=== PATIENT | female | born 1940 | race Caucasian/White ===

== ENCOUNTER → 2022-03-31 | Outpatient (CLI) | payer MEDICARE | LOC: KOH-I 03-24 08:30 | DX: S42.291K Other displaced fracture of upper end of right humerus, subsequent encounter for fracture with nonunion (principal); M19.012 Primary osteoarthritis, left shoulder | CPT/HCPCS: 73200 ==

== ENCOUNTER → 2022-04-08 | Outpatient (CLI) | payer MEDICARE ==
[~2022-04-08] MED LIST: ATENOLOL25 MG PO; MULTI-VITAMIN1 EACH PO; PRAVASTATIN SOD20 MG PO; VITAMIN D21250 MCG PO
[2022-04-08 11:07] LABS: HEMOGLOBIN 12.7 gm/dl (12.3-15.3); RED BLOOD COUNT 4.25 M/UL (4.00-5.10); WHITE BLOOD COUNT 7.5 K/UL (4.5-11.0)
== END ==
LOC: OPSV2 09:05 → EDSTATUS 10:00 → OPSV2 10:00
PROVIDERS: Orthopaedic Surgery
DX: Z01.818 Encounter for other preprocedural examination (principal); S42.202A Unspecified fracture of upper end of left humerus, initial encounter for closed fracture
CPT/HCPCS: 80048; 85025; 93005

== ENCOUNTER → 2022-04-21 | Outpatient (CLI) | payer MEDICARE ==
[~2022-04-21] MED LIST changes: +CELEBREX200 MG PO; +NEURONTIN300 MG PO; +ROXICODONE TAB 55 MG PO; +ROXICODONE5 MG PO; +ZOFRAN 4 MG TAB4 MG PO
== END ==
LOC: LAB 09:10
PROVIDERS: Orthopaedic Surgery
DX: Z01.812 Encounter for preprocedural laboratory examination (principal)
CPT/HCPCS: 36415; 80048; 86850; 86900; 86901

== ENCOUNTER 2022-04-22 07:09 | Observation (INO) | payer MEDICARE ==
[~2022-04-22] VITALS: Ht 160 cm; Wt 54.4 kg
[~2022-04-22 07:09] MED LIST changes: -ROXICODONE TAB 55 MG PO
[2022-04-23] MEDS ORDERED: NEURONTIN300 MG PO (09:09)
[2022-04-23] MEDS ORDERED: ROXICODONE TAB 55 MG PO (09:09)
[2022-04-23] MEDS ORDERED: ZOFRAN 4 MG TAB4 MG PO (09:09)
[2022-04-23] MEDS ORDERED: CELEBREX200 MG PO (09:09)
--- NOTE | 2022-04-23 10:09 | NUR ---
PT DISCHARGED PER MD ORDER. EDUCATION PROVIDED TO THE PATIENT AND HER . SITE CARE EXPLAINED AND THEY WERE EDUCATED TO CALL MONDAY TO SCHEDULE A FOLLOW UP APPOINTMENT WITH DR. PEREZ IN 2 WEEKS. THE PATIENTS SAID HE UNDERSTOOD THE DIRECTIONS AND WAS ABLE TO CARE FOR HIS AT HOME.
== END 2022-04-23 10:05 | disposition home or self-care (01) ==
LOC: OR 07:09 → CCU 16:32 → OR 17:01 → CCU 17:02
PROVIDERS: ADMIT Orthopaedic Surgery
DX: S42.202P Unspecified fracture of upper end of left humerus, subsequent encounter for fracture with malunion (principal); M75.122 Complete rotator cuff tear or rupture of left shoulder, not specified as traumatic; M25.712 Osteophyte, left shoulder; M19.012 Primary osteoarthritis, left shoulder; I10 Essential (primary) hypertension; E78.5 Hyperlipidemia, unspecified; Z79.82 Long term (current) use of aspirin; X58.XXXD Exposure to other specified factors, subsequent encounter
CPT/HCPCS: 73020; 96365; 96376; C1713; C1776; G0378; J0690; J1100; J1885; J2001; J2250; J2405; J2704; J2795; J3010